=== PATIENT | male | born 1960 | race Caucasian/White ===

== ENCOUNTER 2022-01-24 15:58 | Emergency (ER) | payer BC, OTHER, SELFPAY ==
[2022-01-24 16:09] VITALS: PULSE 66; RESP 16; BMI 25.7
--- NOTE | 2022-01-24 17:04 | XR_ITS ---
PROCEDURE INFORMATION: Exam: XR Left Shoulder Exam date and time: 01/24/2022 5:02 PM Age: 61 years old Clinical indication: Injury or trauma; Fall; Blunt trauma (contusions or hematomas); Shoulder; Left TECHNIQUE: Imaging protocol: Radiologic exam of the Left shoulder. Views: 2 or more views. COMPARISON: No relevant prior studies available. FINDINGS: Bones/joints: No acute fracture or dislocation. Moderate spurring at the margins of the acromioclavicular joint. The glenohumeral joint is unremarkable. Visualized left ribs are unremarkable. Soft tissues: Normal. IMPRESSION: 1. No acute findings. 2. AC joint degenerative change.
[2022-01-24 17:25] VITALS: BP 142/83; PULSE 73; RESP 19; TEMP 36.7; O2SAT 98; BMI 27.1
--- NOTE | 2022-01-24 17:44 | EXP.UTC ---
Discharge Plan Disposition Patient Disposition: Home, Self-Care Condition: Good Prescriptions Prescriptions: New ibuprofen 600 mg tablet 600 mg PO Q6HP PRN (Reason: Moderate Pain) Qty: 20 0RF Referrals Follow up/Referrals: Felix Alexander DO [Staff Physician] - See instructions Provider,Referral, [Primary Care Provider] - See instructions Activity Restrictions/Add. Instructions Additional Instructions/Restrictions: *RICE, Rest the extremity, Ice 15-20 minutes 3-4 times daily, Compress- wear the angelo wrap as discussed as much as possible to help reduce swelling and pain, Elevate the extremity when at rest *Angelo wrap/sling is for support and help control swelling, use it except in the shower. Be sure that is not to tight but not to loose either *Elevate when resting? *Ibuprofen 600 every 6-8 hours as needed for pain an inflammation. If need something more can take Tylenol in between doses of Ibuprofen to help Immediately follow up with your family doctor for new or worsening of symptoms, or no noticeable improvement over the next 3-5 days Clinical Impressions Clinical Impression: Contusion of left shoulder Qualifiers: Encounter type: initial encounter Qualified Code(s): S40.012A - Contusion of left shoulder, initial encounter Discharge ED Provider: Belén May [facility] General Stated complaint: [id number] left shoulder injury Mode of Arrival: Ambulatory Source of Information: Patient Limitations: No Limitations Time Seen by Provider: 01/24/22 17:44 Description of Symptoms (Recalled from Triage Doc. by RN): PATIENT C/O LEFT SHOULDER PAIN WITH MOVEMENT AFTER FALLING APPROX 4 FOOT OFF OF A LADDER AND LANDING ON HIS LEFT SIDE. HEENT Symptoms (Recalled from RN notes): No Resp Symptoms (Recalled from RN notes): No Skin Symptoms (Recalled from RN notes): No MS Symptoms (Recalled from RN notes): Yes Functional Status (Recalled from RN notes): WNL History of Present Illness Provider Complaint: Patient states that he was up on ladder earlier helping his brother when the ladder tipped over and he fell landing on his left shoulder area States that he has been having pain in his left shoulder when he moves it ever since States that he come in to get it checked to make sure he didnt break something Related Data Previous Rx's Medication Instructions Recorded ibuprofen 600 mg tablet 600 mg PO Q6HP PRN Moderate Pain 01/24/22 #20 tabs Allergies Allergy/AdvReac Type Severity Reaction Status Date / Time No Known Allergies Allergy Verified 01/24/22 17:03 Worker's Comp Is this a Worker's Comp case?: No PFSH PFSH Medical History (Updated 01/24/22 @ 17:50 by Belén May [employer]ER) No significant past medical history Social History (Updated 01/24/22 @ 17:40 by May Osorio RN) Smoking Status: Unknown if ever smoked alcohol intake: never current occupational status: other Travel in the last 8 weeks: None ROS Obtained: Yes All systems reviewed & no additional complaints except as documented and Yes Systems reviewed as appropriate & no additional complaints except as documented Constitutional Constitutional: Reports system reviewed and no additional complaints, except as documented and Reports as per HPI ENT Ears, Nose, Mouth, and Throat: Reports system reviewed and no additional complaints, except as documented and Reports as per HPI Cardiovascular Cardiovascular: Reports system reviewed and no additional complaints, except as documented and Reports as per HPI Musculoskeletal Musculoskeletal: Reports system reviewed and no additional complaints, except as documented, Reports as per HPI and Reports other (Pain in left shoulder after falling 4ft from ladder landing on left shoulde) Physical Exam General General appearance: alert and in no apparent distress Respiratory Respiratory exam: Present normal lung sounds bilaterally; Absent respiratory distress or wheezes Cardiovascular Cardiovas
[2022-01-24 17:52] VITALS: BP 142/83; PULSE 73; RESP 19; TEMP 36.7; O2SAT 98
== END 2022-01-24 18:04 | disposition home or self-care (01) ==
PROVIDERS: Emergency Provider Nurse Practitioner
DX: M25.512 Pain in left shoulder; S40.012A Contusion of left shoulder, initial encounter; W11.XXXA Fall on and from ladder, initial encounter
CPT/HCPCS: 73030; 99212; G0463